=== PATIENT | male | born 1950 | race Caucasian/White ===

== ENCOUNTER 2021-01-26 12:29 | Outpatient (CLI) | payer MEDICARE ==
[~2021-01-26 12:29] MED LIST: Iopamidol-370 76% 500 ML 1 ML ONE
== END 2021-01-26 12:30 | disposition home or self-care (01) ==
LOC: BICCT 12:29
PROVIDERS: ATTEND Urology
DX: K40.90 Unilateral inguinal hernia, without obstruction or gangrene, not specified as recurrent (principal); R93.421 Abnormal radiologic findings on diagnostic imaging of right kidney
CPT/HCPCS: 72193; 82565; Q9967